=== PATIENT | male | born 1995 | race Caucasian/White ===

== ENCOUNTER 2022-01-31 11:35 | Emergency (ER) | payer OTHER ==
[~2022-01-31 11:35] MED LIST: ATARAX25 MG PO; DEPAKOTE250 MG PO; LEXAPRO20 MG PO; VENTOLIN HFA IN18 GM INH
[2022-01-31] MEDS ORDERED: BACTRIM DS TAB1 EACH PO ×2 (12:48→13:22)
[2022-01-31] MEDS ORDERED: BACTROBAN NASAL1 GM TD ×2 (12:48→13:22)
== END 2022-01-31 13:25 | disposition home or self-care (01) ==
LOC: FER 11:35
DX: L01.00 Impetigo, unspecified (principal); L03.116 Cellulitis of left lower limb; F17.210 Nicotine dependence, cigarettes, uncomplicated; Z88.8 Allergy status to other drugs, medicaments and biological substances
CPT/HCPCS: 99282